=== PATIENT | female | born 1945 | race Hispanic/Latino ===

== ENCOUNTER 2022-01-08 01:48 | Inpatient (IN) | payer MEDICARE ==
[2022-01-08 02:09] LABS: Actual Bicarbonate (HCO3a) 18.6 mEq/L (22-28); Analyzer IN Cardio ER; Base Excess (BEa) -4.7 mEq/L (-2.0 to +3.0); CO2 Tension 29.9 mmHg (35.0-45.0); Calcium, Ionized (arterial) 1.14 mmol/L (1.12-1.30); Carboxyhemoglobin (COHb) 0.7 gm% (0.0-3.0); Hemoglobin (Hb) 13.8 g/dL (12.0-16.0); O2 Tension (PaO2), arterial 93.3 mmHg (> 70.0); Potassium - ABG Lab 2.84 mmol/L (3.70-5.30); pH, Arterial 7.41 (7.35-7.45)
[2022-01-08 02:14] LABS: ALV-art Gradient 225.825 mmHg (0-20); Puncture Site LRA
[2022-01-08] MEDS ORDERED: Propofol 1,000 MG/100 ML VIAL IV PRN (03:30)
[2022-01-08] MEDS ORDERED: Propofol BOLUS 1,000 MG/100 ML VIAL IV PRN (03:30)
[2022-01-08] MEDS ORDERED: Fentanyl BOLUS 250 ML IVPB PRN (03:30)
[2022-01-08] MEDS ORDERED: fentaNYL Citrate/PF 2,000 MCG in Sodium Chloride 0.9% 60 ML IV SCH (03:30)
[2022-01-08] MEDS ORDERED: DISCONTINUE PREVIOUS NARCOTIC PAIN MEDICATIONS AND BENZODIAZEPINES FS SCH (03:30)
[2022-01-08] MEDS ORDERED: Electrolyte Replacement Protocol 1 EACH IVPB PRN (04:12)
[2022-01-08] MEDS ORDERED: Ondansetron PF 4 MG/2 ML Vial IVP PRN (04:12)
[2022-01-08] MEDS ORDERED: Potassium Chloride 40 MEQ in Premix Bag 1 BAG IVPB SCH (04:30)
[2022-01-08] MEDS ORDERED: Sodium Chloride 0.9% 1,000 ML IV SCH (04:30)
[2022-01-08 04:55] LABS: #Monocytes 0.4 thou/uL (0.11-0.59); #Neutrophils 11.7 thou/uL (1.40-6.50); %Basophils 0.1 % (0.0-1.0); %Eosinophils 0.1 % (0.0-10.0); %Lymphocytes 7.5 % (21.0-51.0); %Monocytes 2.6 % (0.0-10.0); %Neutrophils 89.7 % (42.0-75.0); Hemoglobin 13.9 g/dL (12.0-16.0); Mean Corpuscular HGB CONC 31.7 g/dL (32.0-36.0); Mean Corpuscular Hemoglobin 28.4 pg (27.0-31.0); Mean Corpuscular Volume 89.5 fL (78.0-98.0); Mean Platelet Volume 9.1 fL (7.4-10.4); Platelet Count 258 thou/uL (130-400); RBC Distribution Width 14.1 % (11.5-14.5); Red Blood Cell (RBC) Count 4.91 mill/uL (4.20-5.40); White Blood Cell (WBC) Count 13.1 thou/uL (4.8-10.8)
[2022-01-08 05:09] LABS: ALT (SGPT) 23 U/L (8-55); AST (SGOT) 25 U/L (5-34); Albumin 4.1 g/dL (3.4-4.8); Alkaline Phosphatase 127 U/L (40-110); Anion Gap 20 mmol/L (10-20); BUN (Urea Nitrogen) 16 mg/dL (9.8-20.1); Bilirubin, Total 0.3 mg/dL (0.2-1.2); Calc. Creatinine Clearance 67 mL/min (70-130); Carbon Dioxide 18 mmol/L (23-31); Chloride 106 mmol/L (98-107); Globulin 3.3 g/dL (2.4-3.5); Glucose 289 mg/dL (83-110); Magnesium 1.7 mg/dL (1.6-2.6); Protein, Total 7.4 g/dL (5.8-8.1); Sodium 141 mmol/L (136-145)
[2022-01-08 05:11] LABS: Lactic Acid 4.4 mmol/L (0.5-2.2); Potassium 2.9 mmol/L (3.5-5.1)
[2022-01-08] MEDS ORDERED: Sodium Chloride 0.9% 500 ML IV SCH (05:45)
[2022-01-08] MEDS: Cefepime 1 GM in Sodium Chloride 0.9% 100 ML IVPB SCH ×2 (06:09→17:24)
[2022-01-08] MEDS: niCARdipine 25 MG in Sodium Chloride 0.9% 250 ML 250 ML IVPB PRN ×3 (06:11→20:52)
[2022-01-08] MEDS: Potassium Chloride 40 MEQ in Sodium Chloride 0.9% 250 ML 250 ML IVPB SCH ×2 (06:11→10:58)
[2022-01-08] MEDS ORDERED: Magnesium 2 GM/50 ML(in water) 2 GM in Premix Bag 1 BAG IVPB SCH (06:30)
[2022-01-08] MEDS: Vancomycin 1.5 GRAM/300 ML BAG 1.5 GM in Premix Bag 1 BAG IVPB SCH (06:48)
[2022-01-08] MEDS: Famotidine 20 MG TAB PO SCH ×2 (10:36→20:57)
[2022-01-08] MEDS ORDERED: Dextrose 50% Abboject 50 ML SYRINGE SLOW IVP PRN (12:24)
[2022-01-08] MEDS ORDERED: Dextrose 5% in Water 1,000 ML IV PRN (12:24)
[2022-01-08] MEDS: HumaLOG 300 UNITS/3 ML VIAL SC PRN ×3 (13:17→23:52)
[2022-01-08 18:31] LABS: Anion Gap 14 mmol/L (10-20); BUN (Urea Nitrogen) 20 mg/dL (9.8-20.1); Calc. Creatinine Clearance 82 mL/min (70-130); Calcium 8.8 mg/dL (7.8-10.44); Carbon Dioxide 19 mmol/L (23-31); Chloride 116 mmol/L (98-107); Glucose 181 mg/dL (83-110); Potassium 3.7 mmol/L (3.5-5.1); Sodium 145 mmol/L (136-145)
[2022-01-08] MEDS: Acetaminophen 325 MG TAB PO PRN (20:55)
[2022-01-08] MEDS: Lorazepam 2 MG/ML VIAL SLOW IVP PRN (23:55)
[2022-01-09] MEDS: Acetaminophen 325 MG TAB PO PRN ×2 (00:22→22:45)
[2022-01-09] MEDS: Morphine 4 MG/ML VIAL SLOW IVP PRN ×3 (00:39→14:40)
[2022-01-09] MEDS: niCARdipine 25 MG in Sodium Chloride 0.9% 250 ML 250 ML IVPB PRN ×2 (00:50→08:13)
[2022-01-09] MEDS: Cefepime 1 GM in Sodium Chloride 0.9% 100 ML IVPB SCH ×2 (04:31→16:59)
[2022-01-09 06:43] LABS: #Lymphocytes 1.8 thou/uL (1.20-3.40); #Monocytes 1.9 thou/uL (0.11-0.59); #Neutrophils 13.7 thou/uL (1.40-6.50); %Basophils 0.1 % (0.0-1.0); %Lymphocytes 10.4 % (21.0-51.0); %Monocytes 11.1 % (0.0-10.0); %Neutrophils 78.3 % (42.0-75.0); Hemoglobin 12.3 g/dL (12.0-16.0); Mean Corpuscular HGB CONC 32.2 g/dL (32.0-36.0); Mean Corpuscular Hemoglobin 29.3 pg (27.0-31.0); Mean Corpuscular Volume 91.1 fL (78.0-98.0); Mean Platelet Volume 8.9 fL (7.4-10.4); Platelet Count 254 thou/uL (130-400); RBC Distribution Width 14.3 % (11.5-14.5); Red Blood Cell (RBC) Count 4.19 mill/uL (4.20-5.40); White Blood Cell (WBC) Count 17.4 thou/uL (4.8-10.8)
[2022-01-09 07:00] LABS: ALT (SGPT) 22 U/L (8-55); AST (SGOT) 40 U/L (5-34); Albumin 3.8 g/dL (3.4-4.8); Alkaline Phosphatase 105 U/L (40-110); Anion Gap 13 mmol/L (10-20); BUN (Urea Nitrogen) 23 mg/dL (9.8-20.1); Bilirubin, Total 0.5 mg/dL (0.2-1.2); Calc. Creatinine Clearance 92 mL/min (70-130); Calcium 8.8 mg/dL (7.8-10.44); Carbon Dioxide 19 mmol/L (23-31); Chloride 115 mmol/L (98-107); Globulin 2.8 g/dL (2.4-3.5); Glucose 152 mg/dL (83-110); Magnesium 2.3 mg/dL (1.6-2.6); Potassium 3.8 mmol/L (3.5-5.1); Protein, Total 6.6 g/dL (5.8-8.1); Sodium 143 mmol/L (136-145)
[2022-01-09] MEDS: Vancomycin 1.5 GRAM/300 ML BAG 1.5 GM in Premix Bag 1 BAG IVPB SCH (07:44)
[2022-01-09] MEDS: Famotidine 20 MG TAB PO SCH ×2 (09:00→22:45)
[2022-01-09 13:18] VITALS: BMI 29.2
[2022-01-09] MEDS: Lorazepam 2 MG/ML VIAL SLOW IVP PRN ×2 (15:00→20:56)
[2022-01-09] MEDS ORDERED: niCARdipine 50 MG in Sodium Chloride 0.9% 250 ML 230 ML IVPB PRN (15:45)
[2022-01-09] MEDS ORDERED: niCARdipine 50 MG, Admixture Fee 1 EACH in Sodium Chloride 0.9% 250 ML 230 ML IVPB PRN (15:45)
[2022-01-09] MEDS ORDERED: Adenosine 6 MG/2 ML VIAL ONE (20:58)
[2022-01-09] MEDS ORDERED: Metoprolol Tartrate 5 MG/5 ML VIAL ONE (21:07)
[2022-01-09] MEDS ORDERED: Digoxin 0.5 MG/2 ML AMP SLOW IVP SCH (21:45)
[2022-01-09] MEDS ORDERED: Diltiazem 125 MG in Sodium Chloride 0.9% 100 ML IVPB SCH (22:15)
[2022-01-09] MEDS ORDERED: Amiodarone 450 MG, Admixture Fee 1 EACH in Dextrose 5% in Water 250 ML IVPB SCH (23:15)
[2022-01-09] MEDS ORDERED: Amiodarone 150 MG, Admixture Fee 1 EACH in Dextrose 5% in Water 100 ML IVPB SCH (23:15)
[2022-01-10] MEDS: Lorazepam 2 MG/ML VIAL SLOW IVP PRN ×7 (01:45→21:16)
[2022-01-10] MEDS: Morphine 4 MG/ML VIAL SLOW IVP PRN ×13 (01:45→21:11)
[2022-01-10] MEDS: Cefepime 1 GM in Sodium Chloride 0.9% 100 ML IVPB SCH (03:23)
[2022-01-10] MEDS ORDERED: Vancomycin HCl 1.5 GM in Sodium Chloride 0.9% 250 ML 300 ML IVPB SCH (06:00)
[2022-01-10] MEDS ORDERED: PROPOFOL 0 ML ONE (07:16)
[2022-01-10] MEDS ORDERED: Propofol 1,000 MG/100 ML VIAL IV ONE (07:16)
[2022-01-10] MEDS ORDERED: Scopolamine 1.5 mg/72 hour Patch TD SCH (11:00)
[2022-01-11] MEDS: Morphine 4 MG/ML VIAL SLOW IVP PRN ×10 (00:47→23:57)
[2022-01-11] MEDS: Lorazepam 2 MG/ML VIAL SLOW IVP PRN ×10 (04:11→23:57)
[2022-01-11 06:09] LABS: #Monocytes 1.3 thou/uL (0.11-0.59); #Neutrophils 10.6 thou/uL (1.40-6.50); %Basophils 0.1 % (0.0-1.0); %Eosinophils 0.3 % (0.0-10.0); %Lymphocytes 7.6 % (21.0-51.0); %Monocytes 10.2 % (0.0-10.0); %Neutrophils 81.8 % (42.0-75.0); Mean Corpuscular HGB CONC 31.8 g/dL (32.0-36.0); Mean Corpuscular Volume 91.4 fL (78.0-98.0); Mean Platelet Volume 8.6 fL (7.4-10.4); Platelet Count 277 thou/uL (130-400); RBC Distribution Width 14.3 % (11.5-14.5); Red Blood Cell (RBC) Count 4.14 mill/uL (4.20-5.40)
[2022-01-11 06:32] LABS: ALT (SGPT) 33 U/L (8-55); AST (SGOT) 78 U/L (5-34); Albumin 3.7 g/dL (3.4-4.8); Alkaline Phosphatase 106 U/L (40-110); Anion Gap 13 mmol/L (10-20); BUN (Urea Nitrogen) 26 mg/dL (9.8-20.1); Bilirubin, Total 0.7 mg/dL (0.2-1.2); Calc. Creatinine Clearance 92 mL/min (70-130); Calcium 9.2 mg/dL (7.8-10.44); Carbon Dioxide 25 mmol/L (23-31); Chloride 117 mmol/L (98-107); Globulin 3.3 g/dL (2.4-3.5); Glucose 156 mg/dL (83-110); Magnesium 2.4 mg/dL (1.6-2.6); Potassium 3.3 mmol/L (3.5-5.1); Sodium 152 mmol/L (136-145)
[2022-01-12] MEDS: Lorazepam 2 MG/ML VIAL SLOW IVP PRN ×9 (02:08→22:26)
[2022-01-12] MEDS: Morphine 4 MG/ML VIAL SLOW IVP PRN ×9 (02:08→22:26)
[2022-01-12] MEDS ORDERED: Scopolamine 1.5 mg/72 hour Patch TD SCH (12:00)
[2022-01-12] MEDS: Atropine Sulfate 1% Ophth Soln 5 ml Bottle PO SCH (20:58)
[2022-01-13] MEDS: Morphine 4 MG/ML VIAL SLOW IVP PRN ×6 (00:35→12:05)
[2022-01-13] MEDS: Lorazepam 2 MG/ML VIAL SLOW IVP PRN ×6 (00:35→12:04)
[2022-01-13 08:14] VITALS: BP 85/55; TEMP 104.9
[2022-01-13] MEDS: Atropine Sulfate 1% Ophth Soln 5 ml Bottle PO SCH (08:19)
== END 2022-01-13 12:40 | disposition expired | DRG 64 ==
LOC: ERS 01:48 → CCU 02:21 → T4-A 01-10 09:01
PROVIDERS: ADMIT Internal Medicine; ATTEND Internal Medicine
PROC: 8E0ZXY6 Isolation (ICD-10-PCS; principal; 2022-01-08)
PROC: 3E03329 Introduction of Other Anti-infective into Peripheral Vein, Percutaneous Approach (ICD-10-PCS; 2022-01-08)
PROC: 5A1945Z Respiratory Ventilation, 24-96 Consecutive Hours (ICD-10-PCS; 2022-01-08)
DX: I61.8 Other nontraumatic intracerebral hemorrhage (principal); U07.1 COVID-19; A41.9 Sepsis, unspecified organism; G93.5 Compression of brain; J96.00 Acute respiratory failure, unspecified whether with hypoxia or hypercapnia; G93.6 Cerebral edema; E87.2 Acidosis; E87.0 Hyperosmolality and hypernatremia; I62.00 Nontraumatic subdural hemorrhage, unspecified; Z51.5 Encounter for palliative care; Z66 Do not resuscitate; I25.10 Atherosclerotic heart disease of native coronary artery without angina pectoris; E78.5 Hyperlipidemia, unspecified; I10 Essential (primary) hypertension; E87.6 Hypokalemia; R40.20 Unspecified coma; I48.91 Unspecified atrial fibrillation; I25.2 Old myocardial infarction; Z95.5 Presence of coronary angioplasty implant and graft; Z78.1 Physical restraint status
CPT/HCPCS: 36415; 36416; 36600; 70450; 80053; 80202; 82805; 83605; 83735; 85025; 87040; 93005; 93010; 94002; J0282; J0692; J1160; J1815; J2060; J2270; J3370; J3475; J3480; J3490; J7030; J7050; J7070